=== PATIENT | female | born 1970 | race Caucasian/White ===

== ENCOUNTER 2018-01-02 20:45 | Inpatient (IN) | payer SELFPAY ==
[~2018-01-02] VITALS: Ht 162.6 cm; Wt 113.9 kg
[~2018-01-02 20:45] MED LIST: AMBI10TA PO; BUTACAP2 PO; CLOP75 PO; HYDR10SO PO; PROZ20CA11 PO; ROBA500T PO; ROPI.5 PO; ST JTAB PO
[2018-01-02 20:51] VITALS: BP 101/57; PULSE 101; RESP 16; TEMP 97.8; O2SAT 97
[2018-01-02 20:59] VITALS: PULSE 98; RESP 16; O2SAT 97
[2018-01-02] MEDS ORDERED: SODIUM CHLOR 0.9% 1000 ML INJ 1,000 ML IV ONE ×2 (21:00)
[2018-01-02] MEDS ORDERED: ONDANSETRON HCL 4 MG/2 ML VIAL IV PUSH ONE (21:00)
[2018-01-02] MEDS ORDERED: LYSI500T12 (21:06)
[2018-01-02] MEDS ORDERED: ATOR20TA15 PO (21:06)
[2018-01-02] MEDS ORDERED: ASPI-516 CHEW (21:06)
[2018-01-02] MEDS ORDERED: WARF-22 PO (21:06)
[2018-01-02] MEDS ORDERED: MULTTAB67 PO (21:06)
[2018-01-02] MEDS ORDERED: AMBI10TA PO (21:06)
[2018-01-02] MEDS ORDERED: IRONTAB4 (21:06)
--- NOTE | 2018-01-02 21:50 | PD ---
HPI . Near syncope Chief Complaint: Abnormal Results Time Seen by Provider: 20:52 Travel History International Travel<30 days: No Contact w/Intl Traveler<30days: No Traveled to known affect area: No History of Present Illness HPI This patient presents to us by EVAC status post a near syncopal episode. She states that she has been feeling weak all day but was sitting on the toilet when she became profoundly weak and nearly passed out. The patient reports that she has had diarrhea all day. She reports a total of 3 or 4 episodes of diarrhea. She denies any nausea or vomiting. She has had no known bleeding. She is on blood pressure medication but states that there has been no recent change in her medication. She is also maintained on Coumadin because of partial occlusion of a left femoral stent. EVAC reports a systolic blood pressure on their arrival of 60. They have treated her and rate with fluids. The patient does state that she feels a bit better with the fluids. The patient further reports that she had a fall earlier a day striking the back of her head. There was no associated loss of consciousness. She has no current symptoms of a head injury such as altered mental status, blurred vision or nausea. PFSH Past Medical History Asthma: Yes Depression: Yes Heart Rhythm Problems: No Cancer: No Cardiovascular Problems: No High Cholesterol: Yes Chest Pain: No Congestive Heart Failure: No COPD: No Diminished Hearing: No Endocrine: No Fibromyalgia: Yes Genitourinary: No Headaches: Yes Hiatal Hernia: No Immune Disorder: Yes (fibromyolgia) Musculoskeletal: Yes (CHRONIC BACK PAIN) Neurologic: No Psychiatric: Yes Reproductive: No Respiratory: Yes Integumentary: Yes (COLD SORES) Immunizations Current: Yes Migraines: Yes Sleep Apnea: No Ulcer: No ?: Not Tubal Ligation: Yes Past Surgical History Abdominal Surgery: No Cardiac Surgery: No Cholecystectomy: Yes Ear Surgery: No Endocrine Surgery: No Eye Surgery: No Gynecologic Surgery: Yes (Hysterectomy) Hysterectomy: Yes Oral Surgery: Yes (teeth extraction) Thoracic Surgery: No Other Surgery: Yes (RT BREAST LUMPECTOMY,GALLBLADDER REMOVAL,RIGHT OVARY REMOVED.) Social History Alcohol Use: No Tobacco Use: Yes Substance Use: No Allergies-Medications (Allergen,Severity, Reaction): Coded Allergies: morphine (Unverified Adverse Reaction, Severe, VOMITING ,NAUSEA, 01/02/18) Reported Meds & Prescriptions Reported Meds & Active Scripts Active Reported Multiple Vitamin 1 Tab 1 Tab PO DAILY Iron 100 Plus 100-250-0.025-1 mg (Iron-Vitamin C-Vitamin B12-Fol) 100 Mg-250 Mg- 25 Mcg-1 Mg Tab Lysine (Lysine HCl) 500 Mg Tab Atorvastatin (Atorvastatin Calcium) 20 Mg Tab 20 Mg PO HS Aspirin 81 Mg Chew 81 Mg CHEW DAILY Warfarin 10 Mg Tab 10 Mg PO DAILY Ambien (Zolpidem Tartrate) 10 Mg Tab 10 Mg PO HS PRN Review of Systems Except as stated in HPI: all other systems reviewed are Neg General / Constitutional: No: Fever, Chills Cardiovascular: No: Chest Pain or Discomfort Respiratory: No: Shortness of Breath Gastrointestinal: Positive: Diarrhea, Abdominal Pain, No: Nausea, Vomiting, Hematemesis, Hematochezia Genitourinary: No: Hematuria, Vaginal Bleeding Neurologic: Positive: Weakness, Syncope Physical Exam Narrative GENERAL: Currently awake and alert and fully oriented. SKIN: warm/dry. Good color. HEAD: Normocephalic. Atraumatic. EYES: Pupils equal and round. No scleral icterus. No injection or drainage. ENT: No nasal bleeding or discharge. Mucous membranes pink and moist. NECK: Trachea midline. Full range of motion without pain.. CARDIOVASCULAR: Regular rate and rhythm. Heart sounds are normal. RESPIRATORY: No accessory muscle use. Clear to auscultation. Breath sounds equal bilaterally. GASTROINTESTINAL: Abdomen soft. Left lower quadrant tenderness. Bowel sounds present. Nondistended. RECTAL: Brown stool in the rectal vault. No masses palpated. MUSCULOSKELETAL: No obvious deformities. NEUROLOGICAL: Awake and alert. No obvious cranial nerve deficits. Motor grossly within normal limits. Normal speech. PSYCHIATRIC: Appropriate mood and affect; insight and judgment normal. Data Data Last Documented VS Vital Signs Date Time Temp Pulse Resp B/P (MAP) Pulse Ox O2 Delivery O2 Flow Rate FiO2 01/02/18 22:29 91 16 94/54 (67) 97 Room Air 01/02/18 20:51 97.8 Orders Orders Sodium Chlor 0.9% 1000 Ml Inj (Ns 1000 M (01/02/18 21:00) Sodium Chlor 0.9% 1000 Ml Inj (Ns 1000 M (01/02/18 21:00) Sepsis Workup Initiated (01/02/18 ) Complete Blood Count With Diff (01/02/18 20:52) Comprehensive Metabolic Panel (01/02/18 20:52) Prothrombin Time / Inr (Pt) (01/02/18 20:52) Lactic Acid Sepsis Protocol (01/02/18 20:52) Magnesium (Mg) (01/02/18 20:52) Troponin I (01/02/18 20:52) Urinalysis - C+S If Indicated (01/02/18 20:52) Blood Culture (01/02/18 20:52) Ecg Monitoring (01/02/18:52) Iv Access Insert/Monitor (01/02/18:52) Cath For Specimen (01/02/18 20:52) Oximetry (01/02/18 20:52) Ondansetron Inj (Zofran Inj) (01/02/18 21:00) Electrocardiogram (01/02/18 20:51) Ct Brain W/O Iv Contrast(Rout) (01/02/18 23:05) Ct Abd/Pel W/O Iv Contrast (01/02/18 23:05) Sodium Chlor 0.9% 1000 Ml Inj (Ns 1000 M (01/03/18 00:00) Urine Culture (01/03/18 00:00) Vital Signs (Adult) Q4H (01/03/18 02:14) Activity Oob With Assistance (01/03/18 02:14) Soil Analyst / Telemetry .CONTINUOUS (01/03/18 02:14) Sodium Chlor 0.9% 1000 Ml Inj (Ns 1000 M (01/03/18 02:14) Sodium Chloride 0.9% Flush (Ns Flush) (01/03/18 02:15) Sodium Chloride 0.9% Flush (Ns Flush) (01/03/18 09:00) Basic Metabolic Panel (Bmp) (01/03/18 06:00) Complete Blood Count With Diff (01/03/18 06:00) Pt Request For Service (01/03/18 02:14) Case Management Consult (01/03/18 02:14) Naloxone Inj (Narcan Inj) (01/03/18 02:15) Place In Observation (01/03/18 ) Hgb & Hct (01/03/18 02:14) Type And Screen (01/03/18 02:14) Admit Order (Ed Use Only) (01/03/18 ) Soil Analyst / Telemetry BESSY.Q8H (01/03/18 02:34) Vital Signs (Adult) Q4H (01/03/18 02:34) Diet Heart Healthy (01/03/18 Breakfast) Activity Oob With Assistance (01/03/18 02:34) Notify Dr: Other (01/03/18 02:34) Labs Laboratory Tests Test 01/02/18 21:20 01/03/18 00:00 White Blood Count 15.9 TH/MM3 Red Blood Count 4.50 MIL/MM3 Hemoglobin 13.6 GM/DL Hematocrit 40.9 % Mean Corpuscular Volume 90.9 FL Mean Corpuscular Hemoglobin 30.2 PG Mean Corpuscular Hemoglobin Concent 33.3 % Red Cell Distribution Width 16.3 % Platelet Count 323 TH/MM3 Mean Platelet Volume 9.3 FL Neutrophils (%) (Auto) 65.9 % Lymphocytes (%) (Auto) 27.4 % Monocytes (%) (Auto) 5.5 % Eosinophils (%) (Auto) 0.5 % Basophils (%) (Auto) 0.7 % Neutrophils # (Auto) 10.5 TH/MM3 Lymphocytes # (Auto) 4.3 TH/MM3 Monocytes # (Auto) 0.9 TH/MM3 Eosinophils # (Auto) 0.1 TH/MM3 Basophils # (Auto) 0.1 TH/MM3 CBC Comment DIFF FINAL Differential Comment Prothrombin Time 24.6 SEC Prothromb Time International Ratio 2.4 RATIO Blood Urea Nitrogen 17 MG/DL Creatinine 2.25 MG/DL Random Glucose 121 MG/DL Total Protein 7.9 GM/DL Albumin 3.8 GM/DL Calcium Level 9.3 MG/DL Magnesium Level 2.1 MG/DL Alkaline Phosphatase 62 U/L Aspartate Amino Transf (AST/SGOT) 21 U/L Alanine Aminotransferase (ALT/SGPT) 25 U/L Total Bilirubin 0.4 MG/DL Sodium Level 134 MEQ/L Potassium Level 4.5 MEQ/L Chloride Level 94 MEQ/L Carbon Dioxide Level 28.7 MEQ/L Anion Gap 11 MEQ/L Estimat Glomerular Filtration Rate 23 ML/MIN Lactic Acid Level 3.3 mmol/L 1.3 mmol/L Troponin I LESS THAN 0.02 NG/ML Urine Color YELLOW Urine Turbidity HAZY Urine pH 5.5 Urine Specific [place] 1.008 Urine Protein NEG mg/dL Urine Glucose (UA) NEG mg/dL Urine Ketones NEG mg/dL Urine Occult Blood NEG Urine Nitrite NEG Urine Bilirubin NEG Urine Urobilinogen LESS THAN 2.0 MG/DL Urine Leukocyte Esterase NEG Urine RBC 1 /hpf Urine WBC 1 /hpf Urine Squamous Epithelial Cells 5 /hpf Urine Amorphous Sediment OCC Urine Bacteria RARE /hpf Microscopic Urinalysis Comment CATH-CULTURE IND MDM Medical Decision Making Medical Screen Exam Complete: Yes Emergency Medical Condition: Yes Medical Record Reviewed: Yes (Medical history is significant for HTN, tob abuse and PVD.) Interpretation(s) EKG shows a sinus rhythm. No acute ST segment elevation or depression. No change from previous EKG. Differential Diagnosis My differential diagnosis of hypotension includes but is not limited to acute blood loss, gastroenteritis, medication effect Narrative Course This patient presents status post a near syncopal episode just prior to presentation. EVAC found her to be markedly hypotensive with a systolic blood pressure of 60. Patient reports 3 or 4 diarrheal stools today with no obvious blood. She reports no known bleeding from anywhere. She does have a history of hypertension and is on blood pressure medications but states that there has been no recent change to her medications. She is on Coumadin because of peripheral vascular disease with partial occlusion of a femoral stent. In addition, the patient did fall earlier striking her head. She denies loss of consciousness and she denies any symptoms of a head injury. But, she is on Coumadin. The patient is being fluid resuscitated with 2 L of IV fluid. Routine labs are pending. CT of her head and abdomen/pelvis have been ordered. CBC & BMP Diagram 01/02/18 21:20 Total Protein 7.9, Albumin 3.8, Calcium Level 9.3, Magnesium Level 2.1, Alkaline Phosphatase 62, Aspartate Amino Transf (AST/SGOT) 21, Alanine Aminotransferase (ALT/SGPT) 25, Total Bilirubin 0.4 LA 3.3 trop < 0.[address] abd/pelvis: 1. Mild to moderate diverticulosis with no definite inflammatory change. 2. Normal-appearing appendix on this noncontrast exam. 3. Status post cholecystectomy. 4. The mild atelectasis and/or scarring in the posterior lung bases with bullous change in the left lower lobe. 5. Mild motion artifact. SBP remains about 100. I will give her an additional L of IVF. Critical Care Narrative Aggregate critical care time was minutes. Time to perform other separately billable procedures was not included in the critical care time. My time did not include minutes spent treating any other patients simultaneously or on activities that did not directly contribute to the patient's treatment. The services I provided to this patient were to treat and/or prevent clinically significant deterioration due to hypotension, GI blood loss I provided critical care services requiring my management, as noted below: Chart data review, documentation time, medication orders and management, vital sign assessments/reviewing monitor data, ordering and reviewing lab tests, ordering and interpreting/reviewing x-rays and diagnostic studies, care of the patient and discussion of the patient with the admitting physicians Procedures EKG Prior to Arrival: No HemaPrompt Point of Care Internal Pos. & Neg. Controls: Passed Fecal Specimen Occult Blood: Positive Sepsis Criteria SIRS Criteria (2 or more): Heart rate over 90 Physician Communication Physician Communication Dr. Cruz Diagnosis Primary Impression: Hypotension Qualified Codes: I95.9 - Hypotension, unspecified Additional Impressions: Near syncope GI bleed Qualified Codes: K92.2 - Gastrointestinal hemorrhage, unspecified Admitting Information Admitting Physician Requests: Admit Condition: Stable Flaquita Paul MD Jan 02, 2018 21:50
[2018-01-02 21:51] LABS: AUTOMATED NEUTROPHIL # 10.5 TH/MM3 (1.8-7.7); BASOPHIL # 0.1 TH/MM3 (0-0.2); BASOPHIL % 0.7 % (0.0-2.0); EOSINOPHIL # 0.1 TH/MM3 (0-0.4); EOSINOPHIL % 0.5 % (0.0-4.0); HEMATOCRIT 40.9 % (35.0-46.0); HEMOGLOBIN 13.6 GM/DL (11.6-15.3); LYMPH % 27.4 % (9.0-44.0); LYMPHOCYTE # 4.3 TH/MM3 (1.0-4.8); MEAN CELL VOLUME 90.9 FL (80.0-100.0); MEAN CORPUSCULAR HEMOGLOBIN 30.2 PG (27.0-34.0); MEAN CORPUSCULAR HGB CONC 33.3 % (32.0-36.0); MEAN PLATELET VOLUME 9.3 FL (7.0-11.0); MONO % 5.5 % (0.0-8.0); MONOCYTE # 0.9 TH/MM3 (0-0.9); NEUT % 65.9 % (16.0-70.0); PLATELET COUNT 323 TH/MM3 (150-450); RED CELL DISTRIBUTION WIDTH 16.3 % (11.6-17.2); WHITE BLOOD COUNT 15.9 TH/MM3 (4.0-11.0)
[2018-01-02 21:59] LABS: INTERNATIONAL NORMALIZED RATIO 2.4 RATIO; PROTHROMBIN TIME - PATIENT 24.6 SEC (9.8-11.6)
[2018-01-02 22:22] LABS: ALKALINE PHOSPHATASE 62 U/L (45-117); ALT (GPT) 25 U/L (10-53); TOTAL BILIRUBIN ADULT 0.4 MG/DL (0.2-1.0); TOTAL PROTEIN 7.9 GM/DL (6.4-8.2); TROPONIN I LESS THAN 0.02 NG/ML (0.02-0.05)
[2018-01-02 22:23] LABS: LACTIC ACID SEPSIS PROTOCOL 3.3 mmol/L (0.4-2.0)
[2018-01-02 22:25] LABS: ALBUMIN 3.8 GM/DL (3.4-5.0); AST (GOT) 21 U/L (15-37); BICARBONATE 28.7 MEQ/L (21.0-32.0); BLOOD UREA NITROGEN 17 MG/DL (7-18); CALCIUM 9.3 MG/DL (8.5-10.1); CHLORIDE 94 MEQ/L (98-107); CREATININE 2.25 MG/DL (0.50-1.00); GLOMERULAR FILTRATION RATE 23 ML/MIN (>89); GLUCOSE,RANDOM 121 MG/DL (74-106); MAGNESIUM 2.1 MG/DL (1.5-2.5); SODIUM (NA) 134 MEQ/L (136-145)
[2018-01-02 22:29] VITALS: BP 94/54; PULSE 91; RESP 16; O2SAT 97
--- NOTE | 2018-01-02 23:26 | RADRPT ---
EXAM DATE/TIME: 01/02/2018 23:11 [facility] COMPARISON: No previous studies available for comparison. INDICATIONS : Syncopal episode on toilet. RADIATION DOSE: 56.35 CTDIvol (mGy) MEDICAL HISTORY : None SURGICAL HISTORY : Cholecystectomy. Hysterectomy.Oopherectomy, right. ENCOUNTER: Initial ACUITY: 1 day PAIN SCALE: 0/10 LOCATION: cranial TECHNIQUE: Multiple contiguous axial images were obtained of the head. Using automated exposure control and adj ustment of the mA and/or kV according to patient size, radiation dose was kept as low as reasonably a chievable to obtain optimal diagnostic quality images. DICOM format image data is available electro nically for review and comparison. FINDINGS: CEREBRUM: The ventricles are normal for age. No evidence of midline shift, mass lesion, hemorrhage or acute in farction. No extra-axial fluid collections are seen. POSTERIOR FOSSA: The cerebellum and brainstem are intact. The 4th ventricle is midline. The cerebellopontine angle i s unremarkable. EXTRACRANIAL: The visualized portion of the orbits is intact. SKULL: The calvaria is intact. No evidence of skull fracture. CONCLUSION: Negative noncontrast CT Saravanan Morgan MD on January 02, 2018 at 23:23 Board Certified Radiologist. This report was verified electronically.
--- NOTE | 2018-01-02 23:32 | RADRPT ---
EXAM DATE/TIME: 01/02/2018 23:16 [facility] COMPARISON: No previous studies available for comparison. INDICATIONS : Right lower quadrant abdominal pain. ORAL CONTRAST: No oral contrast ingested. RADIATION DOSE: 15.44 CTDIvol (mGy) MEDICAL HISTORY : None SURGICAL HISTORY : Cholecystectomy. Hysterectomy.Oopherectomy, right. ENCOUNTER: Initial ACUITY: 1 day PAIN SCALE: 5/10 LOCATION: Right lower quadrant abdomen TECHNIQUE: Volumetric scanning of the abdomen and pelvis was performed. Using automated exposure control and ad justment of the mA and/or kV according to patient size, radiation dose was kept as low as reasonably achievable to obtain optimal diagnostic quality images. DICOM format image data is available electro nically for review and comparison. FINDINGS: There is mild motion artifact due to breathing. LOWER LUNGS: There is mild atelectasis or scarring at the lung bases with bullous change in the right lower lobe. LIVER: Homogeneous density without lesion. There is no dilation of the biliary tree. Status post cholecyste ctomy. SPLEEN: Normal size without lesion. PANCREAS: Within normal limits. KIDNEYS: Normal in size and shape. There is no mass, stone, or hydronephrosis. ADRENAL GLANDS: Within normal limits. VASCULAR: There is no aortic aneurysm. A right common iliac artery stent catheter is present. BOWEL/MESENTERY: The stomach, small bowel, and colon demonstrate no acute abnormality. Multiple diverticula are presen t in the sigmoid colon with no definite inflammatory change. There is a normal appendix. There is no free intraperitoneal air or fluid. ABDOMINAL WALL: Within normal limits. RETROPERITONEUM: There is no lymphadenopathy. BLADDER: No wall thickening or mass. REPRODUCTIVE: Within normal limits. INGUINAL: There is no lymphadenopathy or hernia. MUSCULOSKELETAL: Within normal limits for patient age. CONCLUSION: 1. Mild to moderate diverticulosis with no definite inflammatory change. 2. Normal-appearing appendix on this noncontrast exam. 3. Status post cholecystectomy. 4. The mild atelectasis and/or scarring in the posterior lung bases with bullous change in the left l ower lobe. 5. Mild motion artifact. Saravanan Morgan MD on January 02, 2018 at 23:26 Board Certified Radiologist. This report was verified electronically.
[2018-01-03] VITALS (8 sets, daily range): BP systolic 105–127; BP diastolic 54–72; PULSE 85–98; RESP 16–21; TEMP 97.9–98; O2SAT 91–98
[2018-01-03] MEDS ORDERED: SODIUM CHLOR 0.9% 1000 ML INJ 1,000 ML IV ONE
[2018-01-03 00:25] LABS: AMORPHOUS SEDIMENT, URINE OCC; BACTERIA, URINE RARE /hpf; BILIRUBIN, URINE NEG (NEG); BLOOD, URINE NEG (NEG); GLUCOSE,URINE NEG (NEG); KETONE, URINE NEG (NEG); NITRITE,URINE NEG (NEG); PH, URINE 5.5 (5.0-8.5); SQUAMOUS EPITHELIAL CELL URINE 5 /hpf (0-5); URINE COLOR YELLOW (YELLW/STRAW); URINE LEUKOCYTE ESTERASE NEG (NEG)
[2018-01-03] MEDS ORDERED: SODIUM CHLORIDE 0.9% FLUSH 10 ML FLUSH IV FLUSH PRN (02:15)
[2018-01-03] MEDS ORDERED: NALOXONE HCL 0.4 MG/ML AMP IV PUSH PRN (02:15)
[2018-01-03 03:38] LABS: HEMOGLOBIN 11.3 GM/DL (11.6-15.3)
[2018-01-03] MEDS: SODIUM CHLOR 0.9% 1000 ML INJ 1,000 ML IV SCH ×3 (03:41→21:24)
--- NOTE | 2018-01-03 04:03 | HHI.HP ---
HPI Service [facility] Primary Care Physician Abdirahman Crowell, DO Admission Diagnosis syncope, hypotension, GI bleed Diagnoses: Travel History International Travel<30 Days: No Contact w/Intl Traveler <30 Da: No Traveled to Known Affected Are: No History of Present Illness History from patient with her at the bedside., ER physician communication, interview of medical records. Patient reported that she went out for dinner last night and upon return, she was having some pains in her sides. She initially thought that it was from fibromyalgia. She went into the bathroom to make bowel movements but not a was not able to. She then started feeling very weak on the toilet. She was able to walk back to the bedroom and finally to the living room and sat next to her . All this time, she was still feeling very lightheaded, weak, was not able to sit upright. After that, she returned back to the toilet for a second time and while she was in the 12 that, she became even more symptomatic and started profusely sweating. She was not able to keep her eyes open and reports that her vision was planned. Her 's likely came right next to her and that bathroom and he was able to catch her before she passed out. She did not hit her head because of this. She stated that she was very pale, diaphoretic, and he thought that she was breathing fast as well. Per ER report, patient's blood pressure was in the 60s systolic upon EMS arrival. Patient was given IV fluid boluses both by the ER and EMS. So far she has received a total of 4 L normal saline bolus. Her blood pressure is around 110/50. On review of system, patient reports of having had headaches on Saturday which is now resolved. She also reports of diarrhea for about 3 days. However states that it was very tiny bit amount and only about 4 times each day. That is also now resolved. She did have abdominal pain with this diarrhea. Denies fever. Denies any urinary frequency/urgency/burning. Denies any black color stools or red color stools. Patient reports of constant coughing in the past few days. She is also coughing during the interview. Denies any sputum production. Patient states that she has only passed out 3 times in her life including today. Her first syncopal episode was 26 years ago while she was and had second episode was in 1994. She denies any new changes in her medications. However O2 sat was 95% on 2 L nasal cannular in ER. She is not on home oxygen. Review of Systems Except as stated in HPI: all other systems reviewed are Neg Past Family Social History Past Medical History htn no cad/chf/afib asthma PAD- left femoral artery stent in 2014 chronic anticoagulation on coumadin RLE DVT - 10/2017 Past Surgical History left femoral stent cholecystectomy right fibroid tumor removed from breast right knee sx hysterectomy Allergies: Coded Allergies: morphine (Unverified Adverse Reaction, Severe, VOMITING ,NAUSEA, 01/02/18) Family History mother- dm sister- dm father- dm, brain cancer Social History smokes about 1 ppd no etoh abuse no drugs abuse Physical Exam Vital Signs Vital Signs Date Time Temp Pulse Resp B/P (MAP) Pulse Ox O2 Delivery O2 Flow Rate FiO2 01/03/18 03:42 98 Nasal Cannula 2.00 01/03/18 03:41 88 16 106/54 (71) 91 Room Air 01/02/18 22:29 91 16 94/54 (67) 97 Room Air 01/02/18 20:59 98 16 97 Room Air 01/02/18 20:55 16 97 Room Air 01/02/18 20:51 97.8 101 16 101/57 (72) 97 Physical Exam GENERAL: This is a well-nourished, well-developed patient, in no apparent distress. Morbidly obese. SKIN: No rashes, ecchymoses or lesions. Cool and dry. HEAD: Atraumatic. Normocephalic. No temporal or scalp tenderness. EYES: No scleral icterus. No injection or drainage. ENT: Nose without bleeding, purulent drainage or septal hematoma. Airway patent. NECK: Trachea midline. No JVD Supple, nontender, no meningeal signs. CARDIOVASCULAR: Regular rate and rhythm without murmurs, gallops, or rubs. RESPIRATORY: Clear to auscultation. Breath sounds equal bilaterally. No wheezes , rales, or rhonchi. GASTROINTESTINAL: Abdomen soft, non-tender, nondistended. No guarding. MUSCULOSKELETAL: Extremities without clubbing, cyanosis, or edema. No calf tenderness. NEUROLOGICAL: Awake and alert Motor and sensory grossly within normal limits. Normal speech. Laboratory Laboratory Tests Test 01/02/18 21:20 01/03/18 00:00 01/03/18 03:10 White Blood Count 15.9 Red Blood Count 4.50 Hemoglobin 13.6 Hematocrit 40.9 Mean Corpuscular Volume 90.9 Mean Corpuscular Hemoglobin 30.2 Mean Corpuscular Hemoglobin Concent 33.3 Red Cell Distribution Width 16.3 Platelet Count 323 Mean Platelet Volume 9.3 Neutrophils (%) (Auto) 65.9 Lymphocytes (%) (Auto) 27.4 Monocytes (%) (Auto) 5.5 Eosinophils (%) (Auto) 0.5 Basophils (%) (Auto) 0.7 Neutrophils # (Auto) 10.5 Lymphocytes # (Auto) 4.3 Monocytes # (Auto) 0.9 Eosinophils # (Auto) 0.1 Basophils # (Auto) 0.1 CBC Comment DIFF FINAL Differential Comment Prothrombin Time 24.6 Prothromb Time International Ratio 2.4 Blood Urea Nitrogen 17 Creatinine 2.25 Random Glucose 121 Total Protein 7.9 Albumin 3.8 Calcium Level 9.3 Magnesium Level 2.1 Alkaline Phosphatase 62 Aspartate Amino Transf (AST/SGOT) 21 Alanine Aminotransferase (ALT/SGPT) 25 Total Bilirubin 0.4 Sodium Level 134 Potassium Level 4.5 Chloride Level 94 Carbon Dioxide Level 28.7 Anion Gap 11 Estimat Glomerular Filtration Rate 23 Lactic Acid Level 3.3 1.3 Troponin I LESS THAN 0.02 Urine Color YELLOW Urine Turbidity HAZY Urine pH 5.5 Urine Specific Glidden 1.008 Urine Protein NEG Urine Glucose (UA) NEG Urine Ketones NEG Urine Occult Blood NEG Urine Nitrite NEG Urine Bilirubin NEG Urine Urobilinogen LESS THAN 2.0 Urine Leukocyte Esterase NEG Urine RBC 1 Urine WBC 1 Urine Squamous Epithelial Cells 5 Urine Amorphous Sediment OCC Urine Bacteria RARE Microscopic Urinalysis Comment CATH-CULTURE IND Date/Time Source Procedure Growth Status 01/02/18 21:20 Blood Peripheral Aerobic Blood Culture Pending Received 01/02/18 21:20 Blood Peripheral Anaerobic Blood Culture Pending Received 01/03/18 00:00 Urine Catheterized Urine Urine Culture Pending Received Result Diagram: 01/02/18211901/02/182119 Imaging Last 48 hours Impressions Chest X-Ray 01/03/18 0000 Signed Impressions: Service Date/Time: Wednesday, January 03, 2018 04:30 - CONCLUSION: No acute disease. There is no evidence of pneumonia. Saravanan Morgan MD Head CT 01/02/182304 Signed Impressions: Service Date/Time: December 23:11 - CONCLUSION: Negative noncontrast CT Saravanan Morgan MD Abdomen/Pelvis CT 01/02/182304 Signed Impressions: Service Date/Time: December 23:16 - CONCLUSION: 1. Mild to moderate diverticulosis with no definite inflammatory change. 2. Normal-appearing appendix on this noncontrast exam. 3. Status post cholecystectomy. 4. The mild atelectasis and/or scarring in the posterior lung bases with bullous change in the left lower lobe. 5. Mild motion artifact. Saravanan Morgan MD Caprini VTE Risk Assessment Caprini VTE Risk Assessment: Mod/High Risk (score >= 2) Caprini Risk Assessment Model Point Value = 1 Point Value = 2 Point Value = 3 Point Value = 5 Age 41-60 Minor surgery BMI > 25 kg/m2 Swollen legs Varicose veins or History of unexplained or recurrent spontaneous Oral contraceptives or hormone replacement Sepsis (< 1 month) Serious lung disease, including pneumonia (< 1 month) Abnormal pulmonary function Acute myocardial infarction Congestive heart failure (< 1 month) History of inflammatory bowel disease Medical patient at bed rest Age 61-74 Arthroscopic surgery Major open surgery (> 45 min) Laparoscopic surgery (> 45 min) Malignancy Confined to bed (> 72 hours) Immobilizing plaster cast Central venous access Age >= 75 History of VTE Family history of VTE Factor V Leiden Prothrombin [id number] Lupus anticoagulant Anticardiolipin antibodies Elevated serum homocysteine Heparin-induced thrombocytopenia Other congenital or acquired thrombophilia Stroke (< 1 month) Elective arthroplasty Hip, pelvis, or leg fracture Acute spinal cord injury (< 1 month) Prophylaxis Regimen Total Risk Factor Score Risk Level Prophylaxis Regimen 0-1 Low Early ambulation 2 Moderate Order ONE of the following: *Sequential Compression Device (SCD) *Heparin 5000 units SQ BID 3-4 Higher Order ONE of the following medications: *Heparin 5000 units SQ TID *Enoxaparin/Lovenox 40 mg SQ daily (WT < 150 kg, CrCl > 30 mL/min) *Enoxaparin/Lovenox 30 mg SQ daily (WT < 150 kg, CrCl > 10-29 mL/min) *Enoxaparin/Lovenox 30 mg SQ BID (WT < 150 kg, CrCl > 30 mL/min) AND/OR *Sequential Compression Device (SCD) 5 or more Highest Order ONE of the following medications: *Heparin 5000 units SQ TID (Preferred with Epidurals) *Enoxaparin/Lovenox 40 mg SQ daily (WT < 150 kg, CrCl > 30 mL/min) *Enoxaparin/Lovenox 30 mg SQ daily (WT < 150 kg, CrCl > 10-29 mL/min) *Enoxaparin/Lovenox 30 mg SQ BID (WT < 150 kg, CrCl > 30 mL/min) AND *Sequential Compression Device (SCD) Assessment and Plan Assessment and Plan Impression: Severe hypotension/shock Possible GI bleed causing above. Per ER report, patient's guaiac was positive. Patient denies any melena/hematochezia/hematemesis. Syncope. Vasovagal secondary to hypotension. Hypoxia. 92-95% on 2 L nasal cannula in ER. Given prior history of DVT, with morbid obesity, we'll need to rule out pulmonary embolism. Hypertension History of asthma Peripheral arterial diseaseleft femoral arterial stent in 2014 Right lower extremity DVT October 2017 Chronic anticoagulation on Coumadin Plan: Continue IV hydration with normal saline at 100 cc per hour. Will monitor for signs and symptoms suggestive of infection. At present, history does not suggest so. Obtain chest x-ray. UA and urine culture if indicated. We'll follow blood culture results. Serial hemoglobin and hematocrit. Expect that hemoglobin will drop due to delusional effect from hydration. However if it continues to further drop, may need to transfuse. GI consult if hemoglobin drops further. Hold antihypertensives. Given that patient has history of DVT, with morbid obesity, would obtain VQ scan Oxygen supplementation. DVT prophylaxis. At present, patient's INR is 2.4. Once GI bleed is ruled out , will start Coumadin. If VQ scan shows any suspicion, then would resume Coumadin/heparin drip. GI prophylaxis on pantoprazole. Discussed Condition With Patient, at the bedside, ER physician Matthew Cruz MD Jan 03, 2018 04:03
--- NOTE | 2018-01-03 04:49 | RADRPT ---
EXAM DATE/TIME: 01/03/2018 04:30 [facility] COMPARISON: No previous studies available for comparison. INDICATIONS : Cough MEDICAL HISTORY : None. SURGICAL HISTORY : Cholecystectomy. Hysterectomy.Oopherectomy, right. ENCOUNTER: Initial ACUITY: 1 day PAIN SCORE: 0/10 LOCATION: Bilateral chest FINDINGS: A single view of the chest demonstrates the lungs to be symmetrically aerated without evidence of mas s, infiltrate or effusion. The cardiomediastinal contours are unremarkable. Osseous structures are intact. CONCLUSION: No acute disease. There is no evidence of pneumonia. Saravanan Morgan MD on January 03, 2018 at 4:46 Board Certified Radiologist. This report was verified electronically.
[2018-01-03] MEDS: ACETAMINOPHEN 500 MG CPLT PO PRN ×2 (05:22→15:37)
[2018-01-03] MEDS: SODIUM CHLORIDE 0.9% FLUSH 10 ML FLUSH IV FLUSH SCH ×2 (08:59→20:33)
[2018-01-03 09:40] LABS: BASOPHIL # 0.1 TH/MM3 (0-0.2); BASOPHIL % 0.6 % (0.0-2.0); EOSINOPHIL # 0.1 TH/MM3 (0-0.4); EOSINOPHIL % 0.9 % (0.0-4.0); HEMOGLOBIN 12.1 GM/DL (11.6-15.3); LYMPHOCYTE # 4.3 TH/MM3 (1.0-4.8); MEAN CORPUSCULAR HEMOGLOBIN 29.8 PG (27.0-34.0); MEAN CORPUSCULAR HGB CONC 32.7 % (32.0-36.0); MONO % 5.7 % (0.0-8.0); MONOCYTE # 0.6 TH/MM3 (0-0.9); NEUT % 53.8 % (16.0-70.0); PLATELET COUNT 279 TH/MM3 (150-450); RED BLOOD COUNT 4.07 MIL/MM3 (4.00-5.30); RED CELL DISTRIBUTION WIDTH 16.4 % (11.6-17.2); WHITE BLOOD COUNT 11.1 TH/MM3 (4.0-11.0)
--- NOTE | 2018-01-03 10:11 | RADRPT ---
EXAM DATE/TIME: 01/03/2018 08:51 [facility] COMPARISON: No previous studies available for comparison. INDICATIONS : Syncope episode with history of DVT. DOSE: 1.5 mCi Tc99m DTPA 8.8 mCi Tc99m MAA MEDICAL HISTORY : Hypertension. Deep venous thrombosis. Peripheral vascular disease. SURGICAL HISTORY : Total knee replacement, right. Hysterectomy. Cholecystectomy. ENCOUNTER: Initial ACUITY: 1 day PAIN SCALE: 0/10 LOCATION: chest TECHNIQUE: Following five minutes of tidal breathing of DTPA aerosol, planar images of the lungs were performed in eight projections. The patient was then injected with MAA, and eight-view perfusion scan was perf ormed. FINDINGS: There is a homogeneous pattern of aerosol delivery to the periphery of both lungs. No focal ventilat ory defects are seen. The perfusion lung scan demonstrates a homogenous pattern of uptake in both lungs. No segmental or s ubsegmental defects are seen. CONCLUSION: Low probability for pulmonary embolism. Abdirahman Rey MD FACR on January 03, 2018 at 10:09 Board Certified Radiologist. This report was verified electronically.
[2018-01-03 10:21] LABS: BICARBONATE 26.5 MEQ/L (21.0-32.0); CALCIUM 8.2 MG/DL (8.5-10.1); CREATININE 1.06 MG/DL (0.50-1.00)
--- NOTE | 2018-01-03 18:38 | HHI.PR ---
Subjective Remarks feeling better no pain loose stools last few days- states- black - but states taking iron pills no abdominal pain nausea or vomiting denies any NSAIds use stools today- soft, Objective Vitals Vital Signs Date Time Temp Pulse Resp B/P (MAP) Pulse Ox O2 Delivery O2 Flow Rate FiO2 01/03/18 16:07 98.0 92 17 127/72 (90) 93 01/03/18 16:01 87 01/03/18 15:20 01/03/18 14:00 85 17 122/66 (84) 96 Nasal Cannula 2.00 01/03/18 11:15 89 18 113/58 (76) 98 Nasal Cannula 2.00 01/03/18 08:45 86 18 105/54 (71) 98 Nasal Cannula 2.00 01/03/18 07:40 87 16 115/59 (77) 93 Room Air 01/03/18 03:42 98 Nasal Cannula 2.00 01/03/18 03:41 88 16 106/54 (71) 91 Room Air 01/02/18 22:29 91 16 94/54 (67) 97 Room Air 01/02/18 20:59 98 16 97 Room Air 01/02/18 20:55 16 97 Room Air 01/02/18 20:51 97.8 101 16 101/57 (72) 97 I/O 01/02/18 01/02/18 01/02/18 01/03/18 01/03/18 01/03/18 07:00 15:00 23:00 07:00 15:00 23:00 Intake Total 200 ml Balance 200 ml Intake Oral 200 ml Result Diagram: 01/03/1882601/03/18826 Imaging Last Impressions Lung Scan-VQ Nuclear Medicine 01/03/18 0000 Signed Impressions: Service Date/Time: Wednesday, January 03, 2018 08:51 - CONCLUSION: Low probability for pulmonary embolism. Abdirahman Rey MD FACR Chest X-Ray 01/03/18 0000 Signed Impressions: Service Date/Time: Wednesday, January 03, 2018 04:30 - CONCLUSION: No acute disease. There is no evidence of pneumonia. Saravanan Morgan MD Head CT 01/02/18 [id number] Signed Impressions: Service Date/Time: December 23:11 - CONCLUSION: Negative noncontrast CT Saravanan Morgan MD Abdomen/Pelvis CT 01/02/18 230 Signed Impressions: Service Date/Time: December 23:16 - CONCLUSION: 1. Mild to moderate diverticulosis with no definite inflammatory change. 2. Normal-appearing appendix on this noncontrast exam. 3. Status post cholecystectomy. 4. The mild atelectasis and/or scarring in the posterior lung bases with bullous change in the left lower lobe. 5. Mild motion artifact. Saravanan Morgan MD Objective Remarks awake and alet, moist oral mucosa anicteric lungs- no rales regular rhythm abdomen- soft, nontender extremities no edema, no calf swelling neuro exam- unremarkable A/P Assessment and Plan 47 years old male Severe hypotension/shock- likely from gastroenteritis- improved continue with fluids Acute gastroenteritis- ? Possible GI bleed causing above. Per ER report, patient's guaiac was positive. states black stools - but states takes iron Near Syncope. Vasovagal secondary to hypotension. continue IVF Increase activity Continue IV hydration with normal saline at 100 cc per hour. Will monitor for signs and symptoms suggestive of infection. At present, history does not suggest so. CXR/UA negative We'll follow blood culture results. LULU- likely from diarrhea ff BMP- creatinine improved continue IVF recheck in am send studies Possible GI bleed causing above. Per ER report, patient's guaiac was positive. Patient - states black stools - Patient takes iron pills ASA, coumadin Syncope. Vasovagal secondary to hypotension. Transient Hypoxia. 92-95% on 2 L nasal cannula in ER. Given prior history of DVT, with morbid obesity, we'll need to rule out pulmonary embolism. Serial hemoglobin and hematocrit. H and H stable- no drop CBC in am GI consult Hold antihypertensives. start po PPI History fo DVT in the past Negative for PE- VQ scan on coumadin INR- 2.4 restart in am if H and H stable and no plan for EGD Hold today if GI decides to scope INR in am Hypertension- hold meds with initial hypotension History of asthma- in remission Peripheral arterial disease- left femoral arterial stent in 2014. as OP on ASA + statins Right lower extremity DVT October 2017 Chronic anticoagulation on Coumadin- INR therapeutic- hold today Increase activity Shelia Johnson MD Jan 03, 2018 18:38
[2018-01-03] MEDS: PANTOPRAZOLE SOD 40 MG DELAYED RELEASE TAB PO SCH (19:36)
[2018-01-03] MEDS: ATORVASTATIN 20 MG TAB PO SCH (20:33)
[2018-01-03] MEDS: ZOLPIDEM TARTRATE 10 MG TAB PO PRN (20:33)
--- NOTE | 2018-01-03 22:11 | EKG ---
Date Performed: 01/02/2018 Time Performed: 20:51:19 PTAGE: 47 years EKG: Sinus tachycardia. Since previous tracing, no significant change noted Abnornal ECG PREVIOUS TRACING : 03/18/2014 01.33 DOCTOR: Edgardo Bellamy Interpretating Date/Time 01/03/2018 22:10:03
[2018-01-04] VITALS (11 sets, daily range): BP systolic 114–139; BP diastolic 56–82; PULSE 81–98; RESP 18–20; TEMP 97.1–98; O2SAT 93–94
[2018-01-04] MEDS: PANTOPRAZOLE SOD 40 MG DELAYED RELEASE TAB PO SCH (07:58)
[2018-01-04] MEDS: SODIUM CHLORIDE 0.9% FLUSH 10 ML FLUSH IV FLUSH SCH ×2 (07:58→21:00)
[2018-01-04] MEDS: SODIUM CHLOR 0.9% 1000 ML INJ 1,000 ML IV SCH (09:58)
[2018-01-04] MEDS ORDERED: PNEUMOCOCCAL POLYVALENT INJ 25 MCG/0.5 ML SYR IM ONE (10:00)
[2018-01-04 11:04] LABS: AUTOMATED NEUTROPHIL # 3.9 TH/MM3 (1.8-7.7); BASOPHIL % 0.5 % (0.0-2.0); EOSINOPHIL # 0.2 TH/MM3 (0-0.4); HEMOGLOBIN 11.5 GM/DL (11.6-15.3); LYMPH % 38.7 % (9.0-44.0); LYMPHOCYTE # 2.9 TH/MM3 (1.0-4.8); MEAN CELL VOLUME 92.7 FL (80.0-100.0); MEAN CORPUSCULAR HEMOGLOBIN 30.6 PG (27.0-34.0); MEAN PLATELET VOLUME 9.1 FL (7.0-11.0); MONO % 6.2 % (0.0-8.0); MONOCYTE # 0.5 TH/MM3 (0-0.9); NEUT % 52.6 % (16.0-70.0); PLATELET COUNT 240 TH/MM3 (150-450); RED BLOOD COUNT 3.77 MIL/MM3 (4.00-5.30); RED CELL DISTRIBUTION WIDTH 16.6 % (11.6-17.2); WHITE BLOOD COUNT 7.5 TH/MM3 (4.0-11.0)
[2018-01-04 11:05] LABS: INTERNATIONAL NORMALIZED RATIO 1.6 RATIO; PROTHROMBIN TIME - PATIENT 15.7 SEC (9.8-11.6)
[2018-01-04 11:19] LABS: BICARBONATE 24.6 MEQ/L (21.0-32.0); CALCIUM 8.5 MG/DL (8.5-10.1); CREATININE 0.94 MG/DL (0.50-1.00)
--- NOTE | 2018-01-04 11:26 | PD.CONS ---
HPI History of Present Illness This is a 47 year old F with PMH significant for hx DVT currently on Coumadin, IBS, PAD, HTN, asthma. Pt presented to the ER nights after syncopal episode on the toilet, reported to be severely hypotensive and lethargic on arrival. Pt denies any straining while on toilet. States she was having some lower abdominal cramping prior to sitting on the toilet, which she states is chronic for her and typical of her IBS. Denies any diarrhea, states she normally has two soft, but formed BMs daily. Denies black stool. Has noticed occasional BRB in stool, this has happened in the past and she was advised to lower her dose of Coumadin. Denies nausea, vomiting. Reports acid reflux, but states when she takes Omeprazole daily symptoms are well controlled. Per attending, pt was found to have a positive bedside occult stool test. H/H stable. Has never had EGD or colonoscopy. Denies ETOH. Admits to smoking PPD and occasional marijuana use. CT abdomen and pelvis noted --> Mild to moderate diverticulosis with no definite inflammatory change. Normal-appearing appendix. S/P cholecystectomy. (Marsha Gonzalez) PFSH Past Medical History htn no cad/chf/afib asthma PAD- left femoral artery stent in 2014 chronic anticoagulation on coumadin RLE DVT - 10/2017 Past Surgical History left femoral stent cholecystectomy right fibroid tumor removed from breast right knee sx hysterectomy Oophorectomy Tubal ligation (Marsha Gonzalez) Coded Allergies: morphine (Unverified Adverse Reaction, Severe, VOMITING ,NAUSEA, 01/02/18) Family History mother- dm sister- dm father- dm, brain cancer Social History smokes about 1 ppd no etoh abuse Admits to occasional marijuana (Marsha Gonzalez) Review of Systems Gastrointestinal: COMPLAINS OF: Abdominal pain, Heartburn, DENIES: Black stools , Bloody stools, Constipation, Diarrhea, Nausea, Vomiting, Difficulty Swallowing , Odynophagia, Swelling of Abdomen, Hematemesis (Marsha Gonzalez) GI Exam Vitals I&O Vital Signs Date Time Temp Pulse Resp B/P (MAP) Pulse Ox O2 Delivery O2 Flow Rate FiO2 01/04/18 08:00 97.7 84 18 114/56 (75) 93 01/04/18 04:15 82 01/04/18 04:00 97.8 82 19 127/64 (85) 93 01/04/18 00:03 83 01/04/18 00:00 97.6 86 19 119/63 (81) 94 01/03/18 20:00 95 01/03/18 20:00 97.9 98 21 126/70 (88) 98 01/03/18 16:07 98.0 92 17 127/72 (90) 93 01/03/18 16:01 87 01/03/18 15:20 01/03/18 14:00 85 17 122/66 (84) 96 Nasal Cannula 2.00 01/03/18 11:15 89 18 113/58 (76) 98 Nasal Cannula 2.00 I/O 01/03/18 01/03/18 01/03/18 01/04/18 01/04/18 01/04/18 07:00 15:00 23:00 07:00 15:00 23:00 Intake Total 200 ml 1000 ml 400 ml 800 ml Balance 200 ml 1000 ml 400 ml 800 ml Intake Oral 200 ml 400 ml IV Total 1000 ml 800 ml # Voids 1 Imaging Last Impressions Lung Scan-VQ Nuclear Medicine 01/03/18 0000 Signed Impressions: Service Date/Time: Wednesday, January 03, 2018 08:51 - CONCLUSION: Low probability for pulmonary embolism. Abdirahman Rey MD FACR Chest X-Ray 01/03/18 0000 Signed Impressions: Service Date/Time: Wednesday, January 03, 2018 04:30 - CONCLUSION: No acute disease. There is no evidence of pneumonia. Saravanan Morgan MD Head CT 01/02/182304 Signed Impressions: Service Date/Time: December 23:11 - CONCLUSION: Negative noncontrast CT Saravanan Morgan MD Abdomen/Pelvis CT 01/02/182304 Signed Impressions: Service Date/Time: December 23:16 - CONCLUSION: 1. Mild to moderate diverticulosis with no definite inflammatory change. 2. Normal-appearing appendix on this noncontrast exam. 3. Status post cholecystectomy. 4. The mild atelectasis and/or scarring in the posterior lung bases with bullous change in the left lower lobe. 5. Mild motion artifact. Saravanan Morgan MD Laboratory Test 01/04/18 09:44 White Blood Count 7.5 TH/MM3 Red Blood Count 3.77 MIL/MM3 Hemoglobin 11.5 GM/DL Hematocrit 35.0 % Mean Corpuscular Volume 92.7 FL Mean Corpuscular Hemoglobin 30.6 PG Mean Corpuscular Hemoglobin Concent 33.0 % Red Cell Distribution Width 16.6 % Platelet Count 240 TH/MM3 Mean Platelet Volume 9.1 FL Neutrophils (%) (Auto) 52.6 % Lymphocytes (%) (Auto) 38.7 % Monocytes (%) (Auto) 6.2 % Eosinophils (%) (Auto) 2.0 % Basophils (%) (Auto) 0.5 % Neutrophils # (Auto) 3.9 TH/MM3 Lymphocytes # (Auto) 2.9 TH/MM3 Monocytes # (Auto) 0.5 TH/MM3 Eosinophils # (Auto) 0.2 TH/MM3 Basophils # (Auto) 0.0 TH/MM3 CBC Comment DIFF FINAL Differential Comment Prothrombin Time 15.7 SEC Prothromb Time International Ratio 1.6 RATIO Date/Time Source Procedure Growth Status 01/02/18 21:20 Blood Peripheral Aerobic Blood Culture - Preliminary NO GROWTH IN 2 DAYS Resulted 01/02/18 21:20 Blood Peripheral Anaerobic Blood Culture - Preliminary NO GROWTH IN 2 DAYS Resulted 01/03/18 00:00 Urine Catheterized Urine Urine Culture Pending Received Physical Examination HEENT: Normocephalic; atraumatic CHEST: Even/unlabored CARDIAC: RRR ABDOMEN: Obese, soft, nontender, bowel sounds active EXTREMITIES: No clubbing, cyanosis, or edema. SKIN: Normal; no rash; no jaundice. SPECIAL SERVICES DIRECTOR: No focal deficits; alert and oriented times three. (Marsha Gonzalez) Assessment and Plan Plan Assessment: - Positive bedside Hemoccult stool test- Denies melena. Reports occasional hematochezia but mostly on the toilet paper when she wipes and has not noticed any blood in over a week. Hx of this- was told to decrease her Warfarin dosage last time this happened. Has never had EGD or colonoscopy. H/H currently stable. INR 2.4. Pt denies diarrhea, states 2 BMs a day, soft but formed Denies nausea, vomiting Abdominal pain intermittent, lower cramping, states typical of her IBS, does not take medication for this Reports acid reflux, well controlled if she takes Omeprazole daily - Syncopal episode with hypotension and extremely lethargic on arrival. Troponin negative. Heat CT, chest x-ray and lung VQ scan negative. - LULU- dehydration- renal function improving since arrival. IVF Plan: EGD/colonoscopy on Saturday Can do on emergent basis if needed, at this time pt is stable Obtain consent Clear liquid diet Saturday NPO after MN Saturday Monitor INR- may need correction Warfarin on hold Protonix Monitor H/H Notify GI of active bleeding Further recommendations based on finding of above Pt has been seen and examined by myself and Dr. Ho and this note is written on her behalf (Marsha Gonzalez) Physician Comments seen, examined agree with above patient has a history of PAD s/p arterial embolism, stent placement we will order CTA abdomen/pelvis Lovenox sq while Coumadin on hold if ok with medical doctor (Andria Ho MD) Marsha Gonzalez Jan 04, 2018 11:26 Andria Ho MD Jan 04, 2018 19:12
--- NOTE | 2018-01-04 13:22 | HHI.PR ---
Subjective Remarks Patient resting in bed comfortably denied diarrhea nausea or vomiting I discussed with her and her who was at the bedside Patient followed by GI for positive fecal occult blood and chronic anemia plan for EGD and colonoscopy in a.m. Objective Vitals Vital Signs Date Time Temp Pulse Resp B/P (MAP) Pulse Ox O2 Delivery O2 Flow Rate FiO2 01/04/18 12:00 97.1 81 18 128/74 (92) 93 01/04/18 08:00 97.7 84 18 114/56 (75) 93 01/04/18 07:56 98 01/04/18 04:15 82 01/04/18 04:00 97.8 82 19 127/64 (85) 93 01/04/18 00:03 83 01/04/18 00:00 97.6 86 19 119/63 (81) 94 01/03/18 20:00 95 01/03/18 20:00 97.9 98 21 126/70 (88) 98 01/03/18 16:07 98.0 92 17 127/72 (90) 93 01/03/18 16:01 87 01/03/18 15:20 01/03/18 14:00 85 17 122/66 (84) 96 Nasal Cannula 2.00 I/O 01/03/18 01/03/18 01/03/18 01/04/18 01/04/18 01/04/18 07:00 15:00 23:00 07:00 15:00 23:00 Intake Total 200 ml 1000 ml 400 ml 800 ml Balance 200 ml 1000 ml 400 ml 800 ml Intake Oral 200 ml 400 ml IV Total 1000 ml 800 ml # Voids 1 Result Diagram: 01/04/18 0944 01/04/18 0944 Objective Remarks GENERAL: This is a well-nourished, well-developed patient, in no apparent distress. SKIN: No rashes, warm and dry HEAD: Atraumatic. Normocephalic. EYES: Pupils equal round and reactive. Extraocular motions intact. No scleral icterus. ENT: Nose without bleeding, or drainage, Airway patent. NECK: Trachea midline. Supple CARDIOVASCULAR: Regular rate and rhythm without murmurs, gallops, or rubs. RESPIRATORY: Fair air entry bilaterally. No wheezes, rales, or rhonchi. GASTROINTESTINAL: Abdomen soft, non-tender, nondistended. Positive bowel sounds MUSCULOSKELETAL: Extremities without clubbing, cyanosis, or edema. Pedal pulses appreciated NEUROLOGICAL: Awake and alert. Moves all extremity. Normal speech.no focal neurological deficit A/P Assessment and Plan 47 years old male 01/04: Doing better clinically, plan for EGD colonoscopy tomorrow, Coumadin on hold, INR 1.6 Addendum: 6: 34>> I just received a call from the nurse reporting that the patient's is requesting full copy of all labs and images and he requested to be transferred to [facility], I talked to the over the phone to see what is his concern since we already discussed earlier today when I round on the patient, he is telling me he wants to be transferred to [facility] and when I asked him why is that and what do they have in there that we do not have he stated "to help "the patient asking what is going on I again over and over explained to him that the patient initially came with dehydration, and she reported hematochezia in the ED and they were found positive FOBT therefore GI planning on doing GI procedure, however I gave him the option if he does not want to do that he can do it as an outpatient however patient refused and insisted on being transferred to [facility], I explained to him that I do not have any solid reason or indication to do hospital to hospital transfer, patient become inappropriate and angry and he stated he will file a report (I do not know what is it about) to "the charge supervisor [employer]". Then patient threatened to go AMA for no reason and then he hung up on me, I discussed with the charge nurse and I explained this is an explained behavior, she told me the nurse tried to go over all the labs he needed just like I try to ask him whenever labs or question he needed and I explained but he still insisting on being transferred to a different hospital Severe hypotension/shock- likely from gastroenteritis- improved continue with fluids Acute gastroenteritis- ? Possible GI bleed causing above. Positive FOBT. With history of hematochezia/iron supplement Near Syncope. Vasovagal secondary to hypotension. continue IVF Increase activity Consult GI, monitor orthostatic blood pressure LULU- likely from dehydration: Improved ff BMP- creatinine improved continue IVF Monitor BMP History of DVT, with morbid obesity, Ruled out pulmonary embolism. Monitoring of H&H, GI following start po PPI Negative for PE- VQ scan on coumadin restart in am if H and H stable and no plan for EGD Hold today if GI decides to scope INR in am Hypertension- hold meds with initial hypotension Peripheral arterial disease- left femoral arterial stent in 2014. as OP on ASA + statins Right lower extremity DVT October 2017 Chronic anticoagulation on Coumadin- INR therapeutic- hold for GI bleed aRnda Tran MD Jan 04, 2018 13:22
[2018-01-04] MEDS ORDERED: IOHEXOL 350 MG/ML 10 ML VIAL (for RAD DIAG) IVCONTRAST ONE (20:13)
--- NOTE | 2018-01-04 20:51 | RADRPT ---
EXAM DATE/TIME: 01/04/2018 19:58 [facility] COMPARISON: CTA RUNOFF W 3D RECON, February 17, 2015, 10:39. INDICATIONS : Abdomen pain with GI bleed. Possible occlusion. IV CONTRAST: 95 cc Omnipaque 350 (iohexol) IV ORAL CONTRAST: No oral contrast ingested. RADIATION DOSE: 9.86 CTDIvol (mGy) MEDICAL HISTORY : Gastroesophageal reflux disease. SURGICAL HISTORY : Cholecystectomy. Hysterectomy.Left femoral stent ENCOUNTER: Initial ACUITY: 2 days PAIN SCALE: 3/10 LOCATION: Bilateral abdomen TECHNIQUE: Volumetric scanning was performed using a multi-row detector CT scanner. The data was post processed with a variety of visualization algorithms including full volume maximum intensity projection, multi -planar sliding thin slab reformation, curved planar reformation, and surface rendering techniques. Using automated exposure control and adjustment of the mA and/or kV according to patient size, radiat ion dose was kept as low as reasonably achievable to obtain optimal diagnostic quality images. DICOM format image data is available electronically for review and comparison. FINDINGS: ABDOMINAL AORTA: The lumen is smooth without significant narrowing or aneurismal dilation. The proximal celiac and sup erior mesenteric arteries are patent and normal in diameter. There are solitary renal arteries bilat erally without gross abnormality. BIFURCATION: Stent is seen in the right common iliac. RIGHT PELVIS: Stent in the right common iliac. LEFT PELVIS: The left common iliac, internal iliac and external iliac vessels are patent and without luminal irreg ularity. Moderate stool is seen throughout the colon. Multiple diverticula are noted without inflammatory mack nges. 3.4 cm left adnexal mass. CONCLUSION: I do not see evidence for mesenteric ischemia. Abdirahman Rey MD FACR on January 04, 2018 at 20:44 Board Certified Radiologist. This report was verified electronically.
[2018-01-04] MEDS: ATORVASTATIN 20 MG TAB PO SCH (22:08)
[2018-01-04] MEDS: ZOLPIDEM TARTRATE 10 MG TAB PO PRN (22:08)
[2018-01-04] MEDS: ENOXAPARIN SODIUM 60 MG/0.6 ML SYRINGE SQ SCH (22:09)
[2018-01-05] VITALS (11 sets, daily range): BP systolic 133–189; BP diastolic 80–111; PULSE 73–119; RESP 18–20; TEMP 97.7–98.5; O2SAT 95–98
[2018-01-05] MEDS: SODIUM CHLOR 0.9% 1000 ML INJ 1,000 ML IV SCH ×2 (03:31→15:31)
[2018-01-05 07:19] LABS: AUTOMATED NEUTROPHIL # 4.7 TH/MM3 (1.8-7.7); BASOPHIL # 0.1 TH/MM3 (0-0.2); EOSINOPHIL # 0.1 TH/MM3 (0-0.4); EOSINOPHIL % 1.3 % (0.0-4.0); HEMOGLOBIN 11.5 GM/DL (11.6-15.3); LYMPH % 40.2 % (9.0-44.0); LYMPHOCYTE # 3.6 TH/MM3 (1.0-4.8); MEAN CELL VOLUME 91.2 FL (80.0-100.0); MEAN CORPUSCULAR HGB CONC 32.9 % (32.0-36.0); MONO % 5.6 % (0.0-8.0); MONOCYTE # 0.5 TH/MM3 (0-0.9); NEUT % 51.9 % (16.0-70.0); PLATELET COUNT 227 TH/MM3 (150-450); RED BLOOD COUNT 3.84 MIL/MM3 (4.00-5.30); RED CELL DISTRIBUTION WIDTH 16.2 % (11.6-17.2)
[2018-01-05 07:24] LABS: INTERNATIONAL NORMALIZED RATIO 1.3 RATIO; PROTHROMBIN TIME - PATIENT 13.4 SEC (9.8-11.6)
[2018-01-05 07:44] LABS: BICARBONATE 26.9 MEQ/L (21.0-32.0); CALCIUM 8.5 MG/DL (8.5-10.1); CREATININE 0.9 MG/DL (0.50-1.00)
[2018-01-05] MEDS: SODIUM CHLORIDE 0.9% FLUSH 10 ML FLUSH IV FLUSH SCH ×2 (08:17→20:43)
[2018-01-05] MEDS: PANTOPRAZOLE SOD 40 MG DELAYED RELEASE TAB PO SCH (08:17)
[2018-01-05] MEDS: ENOXAPARIN SODIUM 60 MG/0.6 ML SYRINGE SQ SCH ×2 (08:17→20:00)
--- NOTE | 2018-01-05 13:05 | HHI.PR ---
Subjective Remarks Patient resting in bed comfortably Her came to bedside and he apologized about what happened yesterday I again explained the reason for the GI scope they are all in agreement Objective Vitals Vital Signs Date Time Temp Pulse Resp B/P (MAP) Pulse Ox O2 Delivery O2 Flow Rate FiO2 01/05/18 12:48 97.8 83 170/91 (117) 95 01/05/18 08:11 Room Air 01/05/18 08:00 97.8 80 133/82 (99) 96 01/05/18 03:43 73 01/05/18 00:08 90 01/05/18 00:00 Room Air 01/05/18 00:00 97.7 92 20 145/80 (101) 97 01/04/18 22:15 Room Air 01/04/18 20:00 Room Air 01/04/18 20:00 98.0 92 20 139/75 (96) 94 01/04/18 15:54 94 01/04/18 15:00 97.8 94 18 133/82 (99) 93 I/O 01/04/18 01/04/18 01/04/18 01/05/18 01/05/18 01/05/18 07:00 15:00 23:00 07:00 15:00 23:00 Intake Total 400 ml 1600 ml 1677 ml Output Total 450 ml Balance 400 ml 1600 ml 1227 ml Intake Oral 400 ml 600 ml 500 ml IV Total 1000 ml 1177 ml Output Urine Total 450 ml # Voids 1 4 # Bowel Movements 0 0 Result Diagram: 01/05/18 0650 01/05/18 0630 Objective Remarks GENERAL: This is a well-nourished, well-developed patient, in no apparent distress. SKIN: No rashes, warm and dry HEAD: Atraumatic. Normocephalic. EYES: Pupils equal round and reactive. Extraocular motions intact. No scleral icterus. ENT: Nose without bleeding, or drainage, Airway patent. NECK: Trachea midline. Supple CARDIOVASCULAR: Regular rate and rhythm without murmurs, gallops, or rubs. RESPIRATORY: Fair air entry bilaterally. No wheezes, rales, or rhonchi. GASTROINTESTINAL: Abdomen soft, non-tender, nondistended. Positive bowel sounds MUSCULOSKELETAL: Extremities without clubbing, cyanosis, or edema. Pedal pulses appreciated NEUROLOGICAL: Awake and alert. Moves all extremity. Normal speech.no focal neurological deficit A/P Assessment and Plan 47 years old male 01/05: Coumadin 1.3 today, plan for EGD colonoscopy tomorrow, probably discharge postprocedure and clearance from GI, BMP much improved Severe hypotension/shock- likely from gastroenteritis- improved continue with fluids Acute gastroenteritis- ? Possible GI bleed causing above. Positive FOBT. With history of hematochezia/iron supplement Near Syncope. Vasovagal secondary to hypotension. continue IVF Increase activity Consult GI, monitor orthostatic blood pressure LULU- likely from dehydration: Improved ff BMP- creatinine improved continue IVF Monitor BMP History of DVT, with morbid obesity, Ruled out pulmonary embolism. Monitoring of H&H, GI following start po PPI Negative for PE- VQ scan on coumadin restart in am if H and H stable and no plan for EGD Hold today if GI decides to scope INR in am Hypertension- hold meds with initial hypotension Peripheral arterial disease- left femoral arterial stent in 2014. as OP on ASA + statins Right lower extremity DVT October 2017 Chronic anticoagulation on Coumadin- INR therapeutic- hold for GI bleed Randa Tran MD Jan 05, 2018 13:05
[2018-01-05] MEDS ORDERED: PEG (High)/E-LYTE SOLN 4000 ML BTL PO ONE (16:00)
--- NOTE | 2018-01-05 17:13 | HHI.GIFU ---
Subjective Remarks Pt in couch by the window States abdominal pain is mild today Had a normal BM earlier this morning Currently drinking GoLytely Denies nausea, vomiting (Marsha Gonzalez) Objective Vitals I&O Vital Signs Date Time Temp Pulse Resp B/P (MAP) Pulse Ox O2 Delivery O2 Flow Rate FiO2 01/05/18 16:20 89 01/05/18 12:48 97.8 83 170/91 (117) 95 01/05/18 08:11 Room Air 01/05/18 08:00 97.8 80 133/82 (99) 96 01/05/18 03:43 73 01/05/18 00:08 90 01/05/18 00:00 Room Air 01/05/18 00:00 97.7 92 20 145/80 (101) 97 01/04/18 22:15 Room Air 01/04/18 20:00 Room Air 01/04/18 20:00 98.0 92 20 139/75 (96) 94 I/O 01/04/18 01/04/18 01/04/18 01/05/18 01/05/18 01/05/18 07:00 15:00 23:00 07:00 15:00 23:00 Intake Total 400 ml 1600 ml 1677 ml Output Total 450 ml Balance 400 ml 1600 ml 1227 ml Intake Oral 400 ml 600 ml 500 ml IV Total 1000 ml 1177 ml Output Urine Total 450 ml # Voids 1 4 # Bowel Movements 0 0 Laboratory Laboratory Tests Test 01/05/18 06:30 01/05/18 06:50 Blood Urea Nitrogen 8 Creatinine 0.90 Random Glucose 92 Calcium Level 8.5 Sodium Level 141 Potassium Level 4.1 Chloride Level 106 Carbon Dioxide Level 26.9 Anion Gap 8 Estimat Glomerular Filtration Rate 67 White Blood Count 9.0 Red Blood Count 3.84 Hemoglobin 11.5 Hematocrit 35.0 Mean Corpuscular Volume 91.2 Mean Corpuscular Hemoglobin 30.0 Mean Corpuscular Hemoglobin Concent 32.9 Red Cell Distribution Width 16.2 Platelet Count 227 Mean Platelet Volume 9.0 Neutrophils (%) (Auto) 51.9 Lymphocytes (%) (Auto) 40.2 Monocytes (%) (Auto) 5.6 Eosinophils (%) (Auto) 1.3 Basophils (%) (Auto) 1.0 Neutrophils # (Auto) 4.7 Lymphocytes # (Auto) 3.6 Monocytes # (Auto) 0.5 Eosinophils # (Auto) 0.1 Basophils # (Auto) 0.1 CBC Comment DIFF FINAL Differential Comment Prothrombin Time 13.4 Prothromb Time International Ratio 1.3 Date/Time Source Procedure Growth Status 01/02/18 21:20 Blood Peripheral Aerobic Blood Culture - Preliminary NO GROWTH IN 3 DAYS Resulted 01/02/18 21:20 Blood Peripheral Anaerobic Blood Culture - Preliminary NO GROWTH IN 3 DAYS Resulted 01/04/18 19:40 Stool Stool Stool Occult Blood (KIANNA) - Final HEMOCCULT NEGATIVE Complete 01/03/18 00:00 Urine Catheterized Urine Urine Culture - Final 50-100,000 CFU/ML MIXED GRAM POSITIVE... Complete Imaging Last Impressions Lung Scan-VQ Nuclear Medicine 01/03/18 0000 Signed Impressions: Service Date/Time: Wednesday, January 03, 2018 08:51 - CONCLUSION: Low probability for pulmonary embolism. Abdirahman Rey MD FACR Chest X-Ray 01/03/18 0000 Signed Impressions: Service Date/Time: Wednesday, January 03, 2018 04:30 - CONCLUSION: No acute disease. There is no evidence of pneumonia. Saravanan Morgan MD Head CT [id number]/02/182304 Signed Impressions: Service Date/Time: December 23:11 - CONCLUSION: Negative noncontrast CT Saravanan Morgan MD Abdomen/Pelvis CT [id number]/02/182304 Signed Impressions: Service Date/Time: December 23:16 - CONCLUSION: 1. Mild to moderate diverticulosis with no definite inflammatory change. 2. Normal-appearing appendix on this noncontrast exam. 3. Status post cholecystectomy. 4. The mild atelectasis and/or scarring in the posterior lung bases with bullous change in the left lower lobe. 5. Mild motion artifact. Saravanan Morgan MD Physical Exam HEENT: Normocephalic; atraumatic CHEST: Even/unlabored CARDIAC: RRR ABDOMEN: Obese, soft, nontender, bowel sounds active EXTREMITIES: No clubbing, cyanosis, or edema. SKIN: Normal; no rash; no jaundice. CHURN DRILL OPERATOR: No focal deficits; alert and oriented times three. (Marsha Gonzalez) Assessment and Plan Plan Assessment: - Positive bedside Hemoccult stool test- Denies melena. Reports occasional hematochezia but mostly on the toilet paper when she wipes and has not noticed any blood in over a week. Hx of this- was told to decrease her Warfarin dosage last time this happened. Has never had EGD or colonoscopy. H/H currently stable. INR 2.4. Pt denies diarrhea, states 2 BMs a day, soft but formed Denies nausea, vomiting Abdominal pain intermittent, lower cramping, states typical of her IBS, does not take medication for this Reports acid reflux, well controlled if she takes Omeprazole daily - Syncopal episode with hypotension and extremely lethargic on arrival. Troponin negative. Heat CT, chest x-ray and lung VQ scan negative. - LULU- dehydration- renal function improving since arrival. IVF (01/05) Pt complaining of mild abdominal pain today. States regular BM this morning, currently drinking GoLytely. Denies nausea, vomiting. CTA abdomen and pelvis --> 3.4 cm left adnexal mass, inspector open die consulted. Negative for mesenteric ischemia. Pt currently drinking GoLytely for EGD/colon planned for tomorrow. Plan: Gynecology consult for L adnexa mass EGD/colonoscopy tomorrow Obtain consent Clear liquid diet today NPO after MN Saturday Warfarin on hold- INR 1.3 Protonix Monitor H/H Notify GI of active bleeding Further recommendations based on finding of above Pt has been seen and examined by myself and Dr. Ho and this note is written on her behalf (Marsha Gonzalez) Physician Comments seen, examined agree with above hold Lovenox in am restart post procedure (Andria Ho MD) Marsha Gonzalez Jan 05, 2018 17:13 Andria Ho MD Jan 05, 2018 17:28
[2018-01-05] MEDS ORDERED: cloNIDine HCL 0.1 MG TAB PO PRN (19:00)
[2018-01-05] MEDS ORDERED: ENALAPRILAT 1.25 MG/ML VIAL IV PUSH PRN (19:00)
[2018-01-05] MEDS: ATORVASTATIN 20 MG TAB PO SCH (20:38)
[2018-01-05] MEDS: ACETAMINOPHEN 500 MG CPLT PO PRN (20:38)
[2018-01-05] MEDS: ZOLPIDEM TARTRATE 10 MG TAB PO PRN (20:42)
[2018-01-06] MEDS: SODIUM CHLOR 0.9% 1000 ML INJ 1,000 ML IV SCH ×2 (00:14→10:14)
[2018-01-06 00:33] VITALS: BP 127/92; PULSE 81; RESP 20; TEMP 97.4; O2SAT 98
[2018-01-06 03:43] VITALS: PULSE 63
[2018-01-06 04:12] VITALS: BP 119/80; PULSE 79; RESP 18; TEMP 97.2; O2SAT 95
[2018-01-06 08:00] VITALS: BP 120/77; PULSE 68; PULSE 77; RESP 17; TEMP 97.8; O2SAT 96
[2018-01-06] MEDS: ENOXAPARIN SODIUM 60 MG/0.6 ML SYRINGE SQ SCH (08:00)
[2018-01-06] MEDS ORDERED: METOPROLOL TARTRATE 25 MG TAB PO PRN (09:15)
[2018-01-06] MEDS ORDERED: POVIDONE IODINE 5% (ANTISEPSIS KIT) 4 APPLICATIONS EACH NARE PRN (09:15)
[2018-01-06] MEDS ORDERED: LACTATED RINGER'S 1000 ML IV PRN (09:15)
[2018-01-06] MEDS ORDERED: SODIUM CHLORID 0.9% 500 ML IV PRN (09:15)
[2018-01-06] MEDS ORDERED: CHLORHEXIDINE GLUCONATE 2 % 1 PACK (2 CLOTHS) TOPICAL PRN (09:15)
--- NOTE | 2018-01-06 10:42 | PD.PROCEDR ---
GI Procedure PROCEDURE PERFORMED EGD with biopsy followed by a colonoscopy with ablation of AVMs and biopsy and snare polypectomy INDICATION FOR PROCEDURE Guaiac positive stools, syncope, hematochezia, history of reflux PROCEDURE: The procedure, risks and benefits were discussed with Ms. Cabrera and informed consent was obtained. Anesthesia sedated her with Diprivan. She was placed in the left lateral decubitus position. EGD: The Pentax videoscope was introduced through the oropharynx and advanced to the second portion of the duodenum under direct visualization. Retroflexion was performed in the stomach. FINDINGS: The esophagus this was unremarkable except for irregular Z line this was biopsied The stomach was normal The duodenum was normal Colonoscopy: The Pentax videoscope was introduced through the rectum and advanced to cecum where the ileocecal valve and appendiceal orifice were identified. Retroflexion was performed in the rectum. Colonic prep was good FINDINGS: Colonic withdrawal time greater than 6 minutes. As the scope was slowly withdrawn colonic mucosa was carefully inspected the patient was noted to have AVMs in the cecum these were cauterized the patient was also noted to have erythemic mucosa on the ileocecal valve this was biopsied there was a small polyp in the ascending colon this was excised using hot snare technique another polyp was noted to be in the distal transverse colon this was small and it was excised using hot snare technique there was a third large polyp measuring about 2 cm in the sigmoid this was excised using hot snare technique this polyp had a peduncle and we had good margin for resection there was a fourth polyp in the rectum this was sessile and it was small and this too was removed using hot snare technique the patient was also noted to have moderately severe diverticulosis of the sigmoid retroflexion in the rectum was unremarkable but rectal examination does reveal small external hemorrhoids ESTIMATED BLOOD LOSS: None SPECIMENS REMOVED: GE junction biopsy and colon polyps COMPLICATIONS: None IMPRESSION: Irregular Z line Cecal AVMs Ileocecal valve erythema 4 colon polyps Diverticulosis External hemorrhoids PLAN: Await biopsies Supportive care High-fiber diet Follow-up with GI post discharge Colonoscopy in 1 year Eulogio Villasenor MD Jan 06, 2018 10:42
[2018-01-06] MEDS: SODIUM CHLORIDE 0.9% FLUSH 10 ML FLUSH IV FLUSH SCH (11:47)
[2018-01-06] MEDS: PANTOPRAZOLE SOD 40 MG DELAYED RELEASE TAB PO SCH (11:47)
[2018-01-06] MEDS: ACETAMINOPHEN 500 MG CPLT PO PRN ×2 (11:47→16:36)
[2018-01-06 12:00] VITALS: BP 127/79; PULSE 63; PULSE 66; RESP 19; TEMP 97.2; O2SAT 98
--- NOTE | 2018-01-06 14:01 | HHI.PR ---
Subjective Remarks Patient seen and examined Clinically stable no acute complain Awaiting on transvaginal ultrasound ordered by [employer] who was consulted due to adnexal mass Objective Vitals Vital Signs Date Time Temp Pulse Resp B/P (MAP) Pulse Ox O2 Delivery O2 Flow Rate FiO2 01/06/18 12:00 97.2 66 19 127/79 (95) 98 01/06/18 11:00 73 16 141/78 (99) 98 01/06/18 10:44 96.8 75 16 132/81 (98) 98 01/06/18 08:00 Room Air 01/06/18 08:00 68 01/06/18 08:00 97.8 77 17 120/77 (91) 96 01/06/18 04:12 97.2 79 18 119/80 (93) 95 01/06/18 03:43 63 01/06/18 00:33 97.4 81 20 127/92 (104) 98 01/05/18 23:43 83 01/05/18 20:58 98.3 119 20 150/94 (112) 95 01/05/18 20:08 98.5 101 18 142/87 (105) 98 01/05/18 20:00 Room Air 01/05/18 19:48 84 01/05/18 17:40 97.9 83 189/111 (137) 98 01/05/18 16:20 89 I/O 01/05/18 01/05/18 01/05/18 01/06/18 01/06/18 01/06/18 07:00 15:00 23:00 07:00 15:00 23:00 Intake Total 1677 ml Output Total 450 ml Balance 1227 ml Intake Oral 500 ml IV Total 1177 ml Output Urine Total 450 ml # Voids 4 # Bowel Movements 0 9 Result Diagram: 01/05/18 0650 01/05/18 0630 Objective Remarks GENERAL: This is a well-nourished, well-developed patient, in no apparent distress. SKIN: No rashes, warm and dry HEAD: Atraumatic. Normocephalic. EYES: Pupils equal round and reactive. Extraocular motions intact. No scleral icterus. ENT: Nose without bleeding, or drainage, Airway patent. NECK: Trachea midline. Supple CARDIOVASCULAR: Regular rate and rhythm without murmurs, gallops, or rubs. RESPIRATORY: Fair air entry bilaterally. No wheezes, rales, or rhonchi. GASTROINTESTINAL: Abdomen soft, non-tender, nondistended. Positive bowel sounds MUSCULOSKELETAL: Extremities without clubbing, cyanosis, or edema. Pedal pulses appreciated NEUROLOGICAL: Awake and alert. Moves all extremity. Normal speech.no focal neurological deficit A/P Assessment and Plan 47 years old obese female 01/05: Coumadin 1.3 today, plan for EGD colonoscopy tomorrow, probably discharge postprocedure and clearance from GI, BMP much improved 01/06: Stable, awaiting on transvaginal ultrasound ordered by [employer] and clearance, cleared by GI earlier, patient will need to follow-up with PCP and with [employer] and GI Severe hypotension/shock- likely from gastroenteritis- improved continue with fluids Acute gastroenteritis- ? Possible GI bleed causing above. Positive FOBT. With history of hematochezia/iron supplement Near Syncope. Vasovagal secondary to hypotension. continue IVF Increase activity Consult GI, monitor orthostatic blood pressure LULU- likely from dehydration: Improved ff BMP- creatinine improved continue IVF Monitor BMP History of DVT, with morbid obesity, Ruled out pulmonary embolism. Monitoring of H&H, GI following start po PPI Negative for PE- VQ scan on coumadin restart in am if H and H stable and no plan for EGD Hold today if GI decides to scope INR in am Hypertension- hold meds with initial hypotension Peripheral arterial disease- left femoral arterial stent in 2014. as OP on ASA + statins Right lower extremity DVT October 2017 Chronic anticoagulation on Coumadin- INR therapeutic- hold for GI bleed Randa Tran MD Jan 06, 2018 14:01
[2018-01-06 16:00] VITALS: BP 146/96; PULSE 78; PULSE 85; RESP 18; TEMP 97.2; O2SAT 98
--- NOTE | 2018-01-06 16:09 | HHI.HP ---
HPI Chief Complaint Left adnexa mass Date Seen: Jan 06, 2018 Travel History International Travel<30 Days: No Contact w/Intl Traveler<30Days: No Known Affected Area: No History of Present Illness HPI Patient is a 47-year-old female that was admitted after experiencing a syncopal episode at home and is currently being evaluated for hypotension and GI bleeding. CTA abdomen and pelvis performed on 01/04/2018 showed an incidental 3.4 cm left adnexal mass. SCRIPT READER was consulted to follow-up on this finding. History Past Medical History Narrative Medical Hypertension Asthma PAD- left femoral artery stent in 2014 Chronic anticoagulation on Coumadin Fibromyalgia Restless leg syndrome Obstetric History Obstetric History Full term vaginal deliveries Past Surgical History Narrative Surgical Left femoral artery stent in 2014 Cholecystectomy Fibroid tumor removed from right breast Hysterectomy due to fibroids with right oophorectomy Tubal ligation in 1989 Family History Narrative Family History Diabetes - mother, sister, father Brain cancer - father Social History Narrative Social History Smokes 1 pack per day 25 years Denies alcohol or drug use Allergies-Medications (Allergen,Severity, Reaction): Coded Allergies: morphine (Unverified Adverse Reaction, Severe, VOMITING ,NAUSEA, 01/02/18) Home Meds Reported Medications Multiple Vitamin (Multiple Vitamin) 1 Tab, 1 TAB PO DAILY for Nutritional Supplement, TAB 0 Refills 01/02/18 Iron-Vitamin C-Vitamin B12-Fol (Iron 100 Plus 100-250-0.025-1 mg) 100 Mg-250 Mg- 25 Mcg-1 Mg Tab 01/02/18 Lysine HCl (Lysine) 500 Mg Tab 01/02/18 Atorvastatin (Atorvastatin) 20 Mg Tab, 20 MG PO HS for Cholesterol Management, # 30 TAB 0 Refills 01/02/18 Aspirin (Aspirin) 81 Mg Chew, 81 MG CHEW DAILY, TAB 0 Refills 01/02/18 Warfarin (Warfarin) 10 Mg Tab, 10 MG PO DAILY for Blood Clot Prevention, #30 TAB 0 Refills 01/02/18 Zolpidem (Ambien) 10 Mg Tab, 10 MG PO HS Y for INSOMNIA, TAB 0 Refills 01/02/18 Review of Systems General / Constitutional: No: Fever, Chills HENT: No: Headaches Cardiovascular: No: Chest Pain or Discomfort Respiratory: No: Short of Breath Gastrointestinal: No: Nausea, Vomiting, Abdominal Pain Genitourinary: No: Dysuria, Discharge, Vaginal Bleeding Skin: No Rash, No Itching Physical Exam Vital Signs Date Time Temp Pulse Resp B/P (MAP) Pulse Ox O2 Delivery O2 Flow Rate FiO2 01/06/18 12:00 97.2 66 19 127/79 (95) 98 01/06/18 12:00 63 01/06/18 11:00 73 16 141/78 (99) 98 01/06/18 10:44 96.8 75 16 132/81 (98) 98 01/06/18 08:00 Room Air 01/06/18 08:00 68 01/06/18 08:00 97.8 77 17 120/77 (91) 96 01/06/18 04:12 97.2 79 18 119/80 (93) 95 01/06/18 03:43 63 01/06/18 00:33 97.4 81 20 127/92 (104) 98 01/05/18 23:43 83 01/05/18 20:58 98.3 119 20 150/94 (112) 95 01/05/18 20:08 98.5 101 18 142/87 (105) 98 01/05/18 20:00 Room Air 01/05/18 19:48 84 01/05/18 17:40 97.9 83 189/111 (137) 98 01/05/18 16:20 89 Narrative GENERAL: Well-nourished, well-developed patient. SKIN: Warm and dry. HEAD: Normocephalic and atraumatic. EYES: No scleral icterus. No injection or drainage. ENT: No nasal drainage noted. Mucous membranes pink. Airway patent. NECK: Supple, trachea midline. No JVD. CARDIOVASCULAR: Regular rate and rhythm without murmurs, gallops, or rubs. RESPIRATORY: Breath sounds equal bilaterally but this. No accessory muscle use. ABDOMEN/GI: Abdomen soft, non-tender, bowel sounds present, no rebound, no guarding GENITOURINARY: External Genitalia: intact and normal in appearance Cervix: [-] EXTREMITIES: No cyanosis or edema. BACK: Nontender without obvious deformity. No CVA tenderness. NEUROLOGICAL: Awake and alert. Motor and sensory grossly within normal limits. Five out of 5 muscle strength in all muscle groups. Normal speech. Caprini VTE Risk Assessment Caprini VTE Risk Assessment: Mod/High Risk (score >= 2) Caprini Risk Assessment Model Point Value = 1 Point Value = 2 Point Value = 3 Point Value = 5 Age 41-60 Minor surgery BMI > 25 kg/m2 Swollen legs Varicose veins or History of unexplained or recurrent spontaneous Oral contraceptives or hormone replacement Sepsis (< 1 month) Serious lung disease, including pneumonia (< 1 month) Abnormal pulmonary function Acute myocardial infarction Congestive heart failure (< 1 month) History of inflammatory bowel disease Medical patient at bed rest Age 61-74 Arthroscopic surgery Major open surgery (> 45 min) Laparoscopic surgery (> 45 min) Malignancy Confined to bed (> 72 hours) Immobilizing plaster cast Central venous access Age >= 75 History of VTE Family history of VTE Factor V Leiden Prothrombin [id number] Lupus anticoagulant Anticardiolipin antibodies Elevated serum homocysteine Heparin-induced thrombocytopenia Other congenital or acquired thrombophilia Stroke (< 1 month) Elective arthroplasty Hip, pelvis, or leg fracture Acute spinal cord injury (< 1 month) Prophylaxis Regimen Total Risk Factor Score Risk Level Prophylaxis Regimen 0-1 Low Early ambulation 2 Moderate Order ONE of the following: *Sequential Compression Device (SCD) *Heparin 5000 units SQ BID 3-4 Higher Order ONE of the following medications: *Heparin 5000 units SQ TID *Enoxaparin/Lovenox 40 mg SQ daily (WT < 150 kg, CrCl > 30 mL/min) *Enoxaparin/Lovenox 30 mg SQ daily (WT < 150 kg, CrCl > 10-29 mL/min) *Enoxaparin/Lovenox 30 mg SQ BID (WT < 150 kg, CrCl > 30 mL/min) AND/OR *Sequential Compression Device (SCD) 5 or more Highest Order ONE of the following medications: *Heparin 5000 units SQ TID (Preferred with Epidurals) *Enoxaparin/Lovenox 40 mg SQ daily (WT < 150 kg, CrCl > 30 mL/min) *Enoxaparin/Lovenox 30 mg SQ daily (WT < 150 kg, CrCl > 10-29 mL/min) *Enoxaparin/Lovenox 30 mg SQ BID (WT < 150 kg, CrCl > 30 mL/min) AND *Sequential Compression Device (SCD) Data Data Orders Orders Consult Gynecology (01/05/18 ) Enalaprilat Inj (Vasotec Inj) (01/05/18 19:00) Clonidine (Catapres) (01/05/18 19:00) ^ Other Nursing Orders (01/05/18 18:50) (Hub Use Only)Inp Phy Cons/Ref (01/05/18 ) Panendo (01/06/18 ) Colonoscopy (01/06/18 ) Lactated Ringer's 1000 Ml Inj (Lr 1000 M (01/06/18 09:15) Sodium Chlorid 0.9% 500 Ml Inj (Ns 500 M (01/06/18 09:15) Metoprolol Tartrate (Lopressor) (01/06/18 09:15) Povidone Iod 5% Antisepsis Kit (Betadine (01/06/18 09:15) Chlorhexidine 2% Cloth (Chlorhexidine 2% (01/06/18 09:15) Us Pelvis Comp W Transvaginal (01/06/18 ) Diet Heart Healthy (01/06/18 Lunch) Cbc No Diff, Includes Plts (01/07/18 06:00) Comprehensive Metabolic Panel (01/07/18 06:00) Gi Lab Preop/Recover-Statistic (01/06/18 ) Gi Lab Recover Minimum 30m (01/06/18 ) Labs Date/Time Source Procedure Growth Status 01/02/18 21:20 Blood Peripheral Aerobic Blood Culture - Preliminary NO GROWTH IN 4 DAYS Resulted 01/02/18 21:20 Blood Peripheral Anaerobic Blood Culture - Preliminary NO GROWTH IN 4 DAYS Resulted 01/04/18 19:40 Stool Stool Stool Occult Blood (KIANNA) - Final HEMOCCULT NEGATIVE Complete 01/03/18 00:00 Urine Catheterized Urine Urine Culture - Final 50-100,000 CFU/ML MIXED GRAM POSITIVE... Complete Assessment/Plan Assessment and Plan 47-year-old female been evaluated for an occult GI bleed, found to have an incidental 3.4 cm left adnexal mass. -Asymptomatic from a SCRIPT READER standpoint -No interventions required at this time -Recommend follow-up on left adnexal mass with insurance sales agent as an outpatient in 2 weeks At this time, SCRIPT READER will sign off. Thank you for inviting us to the care of this patient. Please contact us with further questions. Grisel Caballero MD Jan 06, 2018 16:09
--- NOTE | 2018-01-06 17:31 | RADRPT ---
EXAM DATE/TIME: 01/06/2018 14:50 [facility] COMPARISON: CTA ABDOMEN & PELVIS W 3D RECON, January 04, 2018, 19:58. EXTERNAL COMPARISON : INDICATIONS : Pelvic pain. MEDICAL HISTORY : Gastroesophageal reflux disease. Hypercholesterolemia. Fibromyolgia. Dizziness. Headache. Asthma. D epression. Dyspnea. SURGICAL HISTORY : Cholecystectomy. Hysterectomy. Right knee arthoscopy. Right breast Lumpectomy. Right ovary removed. ENCOUNTER: Initial ACUITY: 2 days PAIN SCORE: 0/10 LOCATION: Bilateral pelvis MEASUREMENTS: UTERUS: N/A cm Surgically absent ENDOMETRIAL STRIPE: RIGHT OVARY: N/A cm Surgically absent LEFT OVARY: 4.2 x 3.3 x 2.8 cm FINDINGS: UTERUS: Surgically absent RIGHT OVARY: Surgically absent LEFT OVARY: Multiple internal and exophytic cysts present, largest measuring 2.7 cm. MISCELLANEOUS: No free fluid. CONCLUSION: Several left ovarian cysts. Derick Figueroa MD on January 06, 2018 at 17:26 Board Certified Radiologist. This report was verified electronically.
--- NOTE | 2018-01-06 17:43 | HHI.PR ---
Subjective Remarks [facility] Attending The patient was seen and examined with the resident. The patient is a 47 year- old P2 with past medical history significant for Hypertension, Asthma, PAD- left femoral artery stent in 2014, Chronic anticoagulation on Coumadin, Fibromyalgia, and Restless leg syndrome . Patient was admitted and is undergoing evaluation for a near syncopal episode. CT showed and ovarian cyst that was followed up with US. US showed the left ovary to measure 4.2 x 3.3 x 2.8 cm with multiple internal and exophytic cysts present, largest measuring 2.7 cm. She denies any pelvic pain or other concerns. Physical examination was benign. Discussed findings with patient. Likely benign ovarian cyst, would recommend repeat US in 2-3 months and follow up with outpatient practice or student teacher. All of the patient's questions were answered. Objective Vital Signs Date Time Temp Pulse Resp B/P (MAP) Pulse Ox O2 Delivery O2 Flow Rate FiO2 01/06/18 16:00 97.2 85 18 146/96 (113) 98 01/06/18 12:00 97.2 66 19 127/79 (95) 98 01/06/18 12:00 63 01/06/18 11:00 73 16 141/78 (99) 98 01/06/18 10:44 96.8 75 16 132/81 (98) 98 01/06/18 08:00 Room Air 01/06/18 08:00 68 01/06/18 08:00 97.8 77 17 120/77 (91) 96 01/06/18 04:12 97.2 79 18 119/80 (93) 95 01/06/18 03:43 63 01/06/18 00:33 97.4 81 20 127/92 (104) 98 01/05/18 23:43 83 01/05/18 20:58 98.3 119 20 150/94 (112) 95 01/05/18 20:08 98.5 101 18 142/87 (105) 98 01/05/18 20:00 Room Air 01/05/18 19:48 84 I/O 01/05/18 01/05/18 01/05/18 01/06/18 01/06/18 01/06/18 07:00 15:00 23:00 07:00 15:00 23:00 Intake Total 1677 ml Output Total 450 ml Balance 1227 ml Intake Oral 500 ml IV Total 1177 ml Output Urine Total 450 ml # Voids 4 # Bowel Movements 0 9 Result Diagram: 01/05/18 0650 01/05/18 0630 Marce Gary MD Jan 06, 2018 17:43
[2018-01-06] MEDS ORDERED: ENOX60P SQ (17:56)
--- NOTE | 2018-01-07 19:32 | HHI.DS ---
Discharge Summary Admission Date Jan 03, 2018 at 04:12 Discharge Date: Jan 06, 2018 Admitting Diagnosis syncope, hypotension, GI bleed (1) Hypotension ICD Code: I95.9 - Hypotension, unspecified (2) Dehydration ICD Code: E86.0 - Dehydration (3) LULU (acute kidney injury) ICD Code: N17.9 - Acute kidney failure, unspecified (4) Anemia ICD Code: D64.9 - Anemia Status: Acute (5) Fibromyalgia ICD Code: M79.7 - Fibromyalgia Status: Acute (6) History of thromboembolism ICD Code: Z86.718 - Personal history of other venous thrombosis and embolism (7) Adnexal cyst ICD Code: N94.9 - Unspecified condition associated with female genital organs and menstrual cycle (8) Febrile illness ICD Code: R50.9 - Febrile illness Status: Acute Procedures EGD colonoscopy, transvaginal ultrasound Brief History - From Admission History from patient with her at the bedside., ER physician communication, interview of medical records. Patient reported that she went out for dinner last night and upon return, she was having some pains in her sides. She initially thought that it was from fibromyalgia. She went into the bathroom to make bowel movements but not a was not able to. She then started feeling very weak on the toilet. She was able to walk back to the bedroom and finally to the living room and sat next to her . All this time, she was still feeling very lightheaded, weak, was not able to sit upright. After that, she returned back to the toilet for a second time and while she was in the 12 that, she became even more symptomatic and started profusely sweating. She was not able to keep her eyes open and reports that her vision was planned. Her 's likely came right next to her and that bathroom and he was able to catch her before she passed out. She did not hit her head because of this. She stated that she was very pale, diaphoretic, and he thought that she was breathing fast as well. Per ER report, patient's blood pressure was in the 60s systolic upon EMS arrival. Patient was given IV fluid boluses both by the ER and EMS. So far she has received a total of 4 L normal saline bolus. Her blood pressure is around 110/50. On review of system, patient reports of having had headaches on Saturday which is now resolved. She also reports of diarrhea for about 3 days. However states that it was very tiny bit amount and only about 4 times each day. That is also now resolved. She did have abdominal pain with this diarrhea. Denies fever. Denies any urinary frequency/urgency/burning. Denies any black color stools or red color stools. Patient reports of constant coughing in the past few days. She is also coughing during the interview. Denies any sputum production. Patient states that she has only passed out 3 times in her life including today. Her first syncopal episode was 26 years ago while she was and had second episode was in 1994. She denies any new changes in her medications. However O2 sat was 95% on 2 L nasal cannular in ER. She is not on home oxygen. CBC/BMP: 01/05/18 0650 01/05/18 0630 Significant Findings Laboratory Tests Test 01/05/18 06:30 01/05/18 06:50 Estimat Glomerular Filtration Rate 67 ML/MIN (>89) Red Blood Count 3.84 MIL/MM3 (4.00-5.30) Hemoglobin 11.5 GM/DL (11.6-15.3) Prothrombin Time 13.4 SEC (9.8-11.6) PE at Discharge GENERAL: This is a well-nourished, well-developed patient, in no apparent distress. SKIN: No rashes, warm and dry HEAD: Atraumatic. Normocephalic. EYES: Pupils equal round and reactive. Extraocular motions intact. No scleral icterus. ENT: Nose without bleeding, or drainage, Airway patent. NECK: Trachea midline. Supple CARDIOVASCULAR: Regular rate and rhythm without murmurs, gallops, or rubs. RESPIRATORY: Fair air entry bilaterally. No wheezes, rales, or rhonchi. GASTROINTESTINAL: Abdomen soft, non-tender, nondistended. Positive bowel sounds MUSCULOSKELETAL: Extremities without clubbing, cyanosis, or edema. Pedal pulses appreciated NEUROLOGICAL: Awake and alert. Moves all extremity. 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 She will be placed on bridging Coumadin and Lovenox with daily INR to stop Lovenox when INR is above 2 [id number] encounter performed with the patient on discharge day, as well as physical exam, summary of hospitalization course and postdischarge plan has been D/W the patient. D/W nurse D/W family caseworker. Discharge medications reviewed and printed and signed, post discharge follow up visit with PCP and other specialist as well as Brief hospital course and discharge summary has been placed. Pt Condition on Discharge: Fair Discharge Disposition: Discharge Home Discharge Time: > 30 minutes Discharge Instructions DIET: Follow Instructions for: Heart Healthy Diet, High Fiber Diet Activities you can perform: Weight Bearing as Laurie Follow up Referrals: Gastroenterology - 2 Weeks with Eulogio Villasenor MD COMBAT ENGINEER - 2 Weeks with Carissa Ca MD New Orders: PT/INR - Daily New Medications: Enoxaparin Inj (Lovenox Inj) 60 Mg/0.6 Ml Syr 60 MG SQ Q12H for dvt for 10 Days, INJECTION Continued Medications: Aspirin (Aspirin) 81 Mg Chew 81 MG CHEW DAILY, TAB 0 Refills Atorvastatin (Atorvastatin) 20 Mg Tab 20 MG PO HS for Cholesterol Management, #30 TAB 0 Refills Iron-Vitamin C-Vitamin B12-Fol (Iron 100 Plus 100-250-0.025-1 mg) 100 Mg-250 Mg- 25 Mcg-1 Mg Tab Warfarin (Warfarin) 10 Mg Tab 10 MG PO DAILY for Blood Clot Prevention, #30 TAB 0 Refills Randa Tran MD Jan 07, 2018 19:32
== END 2018-01-06 18:30 | disposition home or self-care (01) | DRG 682 ==
LOC: NEPE 20:45 → NEDA 01-03 02:36 → OBSVTOIN 01-03 04:12 → NEDH 01-03 06:31 → N04A 01-03 15:00
PROVIDERS: ADMIT Hospitalist; ATTEND Hospitalist
PROC: 0DBL8ZZ Excision of Transverse Colon, Via Natural or Artificial Opening Endoscopic (ICD-10-PCS; 2018-01-06)
PROC: 0DBN8ZZ Excision of Sigmoid Colon, Via Natural or Artificial Opening Endoscopic (ICD-10-PCS; 2018-01-06)
PROC: 0D5H8ZZ Destruction of Cecum, Via Natural or Artificial Opening Endoscopic (ICD-10-PCS; 2018-01-06)
PROC: 0DBB8ZX Excision of Ileum, Via Natural or Artificial Opening Endoscopic, Diagnostic (ICD-10-PCS; 2018-01-06)
PROC: 0DB48ZX Excision of Esophagogastric Junction, Via Natural or Artificial Opening Endoscopic, Diagnostic (ICD-10-PCS; principal; 2018-01-06 09:43)
PROC: 0DBK8ZZ Excision of Ascending Colon, Via Natural or Artificial Opening Endoscopic (ICD-10-PCS; 2018-01-06 09:43)
DX: N17.9 Acute kidney failure, unspecified (principal); K55.21 Angiodysplasia of colon with hemorrhage; R57.9 Shock, unspecified; Z68.41 Body mass index [BMI] 40.0-44.9, adult; E66.01 Morbid (severe) obesity due to excess calories; I10 Essential (primary) hypertension; E78.00 Pure hypercholesterolemia, unspecified; I73.9 Peripheral vascular disease, unspecified; R09.02 Hypoxemia; K58.9 Irritable bowel syndrome, unspecified; K21.9 Gastro-esophageal reflux disease without esophagitis; E86.0 Dehydration; K63.5 Polyp of colon; K62.1 Rectal polyp; K57.30 Diverticulosis of large intestine without perforation or abscess without bleeding; K64.4 Residual hemorrhoidal skin tags; D64.9 Anemia, unspecified; N83.292 Other ovarian cyst, left side; M54.9 Dorsalgia, unspecified; G89.29 Other chronic pain; M79.7 Fibromyalgia; G25.81 Restless legs syndrome; F12.90 Cannabis use, unspecified, uncomplicated; F17.210 Nicotine dependence, cigarettes, uncomplicated; Z23 Encounter for immunization; F32.9 Major depressive disorder, single episode, unspecified; Z79.01 Long term (current) use of anticoagulants; Z86.718 Personal history of other venous thrombosis and embolism; Z88.5 Allergy status to narcotic agent
CPT/HCPCS: 70450; 71045; 74174; 74176; 76830; 76856; 78582; 80048; 80053; 81001; 82272; 83605; 83735; 84484; 85014; 85018; 85025; 85610; 86850; 86900; 86901; 87040; 87086; 88305; 90732; 93005; 96361; 96374; A9540; A9567; G8987-GP; G8988-GP; J1650; J2405; J7030; P9612; Q9967